=== PATIENT | male | born 1990 | race Two or more races ===

== ENCOUNTER 2019-05-23 10:43 | Emergency (ER) | payer SELFPAY ==
[~2019-05-23] VITALS: Ht 180.3 cm; Wt 106.6 kg
--- NOTE | 2019-05-23 11:00 | NUR ---
Patient ambulated with stable gait. Speech is clear, speaks in complete sentences. A/Ox4. No acute neuro deficits. Patient came for c/o sore throat + cough, and patient wreaked of marijuana/cannabis scent. Upon assessment, no cough evidence or signs of respiratory distress. No cardiovascular distress noted, all pulses palpable. Denies any n/v/d.
--- NOTE | 2019-05-23 11:07 | NUR ---
ERMD at bedside for MSE
[2019-05-23] MEDS ORDERED: DEXAMETHASONE SOD PHOSPHATE 4 MG INJ IM ONE (11:15)
[2019-05-23] MEDS ORDERED: DEXAMETHASONE SOD PHOSPHATE 4 MG INJ ONE (11:20)
--- NOTE | 2019-05-23 11:40 | NUR ---
Patient not seen in room
--- NOTE | 2019-05-23 11:45 | NUR ---
Patient eloped from facility. ER physician notified. Patient not seen in room, no intravenous insertion left in place.
== END 2019-05-23 11:49 | disposition left against medical advice (07) ==
LOC: ER 10:43
DX: J02.9 Acute pharyngitis, unspecified (principal); R05 Cough; Z88.8 Allergy status to other drugs, medicaments and biological substances
CPT/HCPCS: 96372; 99283; J1100; A4663